=== PATIENT | male | born 1985 | race Caucasian/White ===

== ENCOUNTER → 2020-06-01 | Outpatient (CLI) | payer OTHER ==
--- NOTE | 2020-06-01 12:15 | KCIC ---
Study: MRI left ankle without contrast INDICATION: Posterior and lateral ankle pain persisting over the past 2 months. COMPARISON: None. TECHNIQUE: Multiplanar MR imaging of the left ankle performed without the use of intravenous or intra-articular contrast. FINDINGS: Bones/cartilage: No acute marrow signal abnormality. Apparent mild T2 signal elevation at the periphery of the medial and lateral malleoli is favored artifactual from incomplete fat suppression especially given no corresponding signal abnormality on the T1 sequences. No osseous coalition. No focal chondral abnormality seen at the ankle or significant degenerative changes at the hindfoot/midfoot. Ligaments: Unremarkable distal syndesmotic ligaments. Mildly thickened but intact ATFL. Unremarkable CFL and PTFL. Intact superficial and deep deltoid ligament complex. Unremarkable spring and Lisfranc ligaments. Tendons: Normal signal, morphology and location of the peroneal tendons. Unremarkable PTT, FDL and FHL. No Achilles tendon tear or significant tendinosis. Unremarkable extensors. Sinus Tarsi: Normal. Tarsal tunnel: No space-occupying mass. Plantar fascia: No findings of active plantar fasciitis. Miscellaneous: Small amount of ankle joint fluid but without synovitis. Slightly greater volume of fluid within the retrocalcaneal bursa than typically seen, image 12 series 4. No edema of Kager's fat. No localized atrophy or edema of the intrinsic foot musculature. IMPRESSION: 1. No acute osseous, tendon or ligament abnormality. Mild thickening of the ATFL could be related to prior sprain but the ligament is intact. 2. Slightly more fluid within the retrocalcaneal bursa than typically seen. Mild bursitis is a consideration but note is made that the adjacent Achilles is unremarkable as is Kager's fat. Recommend correlation for any symptoms referrable to this region. Electronically signed by: [email or web address] STORM MD (06/01/2020 12:12 PM) [id number]
== END | disposition home or self-care (01) ==
LOC: KCIC MRI 08:20
PROVIDERS: ATTEND Family Medicine
DX: M77.52 Other enthesopathy of left foot and ankle (principal)
CPT/HCPCS: 73721